=== PATIENT | female | born 1990 | race Caucasian/White ===

== ENCOUNTER 2017-04-02 19:48 | Emergency (ER) | payer BC, OTHER ==
--- NOTE | 2017-04-02 20:01 | PDOC ---
History of Present Illness - General History Source: Patient Exam Limitations: No Limitations - History of Present Illness Initial Comments: 04/02/17 20:17 Patient is a 27 year old female with no significant past medical history presenting to the ED with complaints of Diarrhea and intractable vomiting beginning yesterday. She reports intractable vomiting beginning this morning as well as multiple episodes of diarrhea secondary to nausea. She states that she had a cyst removed from an ovary while in highschool, but is unable to remember which ovary. Patient reports she is actively trying to get but has yet been unsuccessful to her knowledge. Denies chest pain, SOB, lightheadedness. Denies chills, fever. Denies any other symptoms. Allergies: N/A <Wily Higginbotham - Last Filed: 04/02/17 20:17> <Mandeep Farmer - Last Filed: 04/03/17 00:49> - General Chief Complaint: Nausea/Vomiting Stated Complaint: VOMITTING/DIARRHEA Past History <Wily Higginbotham - Last Filed: 04/02/17 20:17> - Immunization History Immunization Up to Date: Yes - Psycho/Social/Smoking Cessation Hx Anxiety: No Suicidal Ideation: No Smoking Status: No Smoking History: Never smoked Have you smoked in the past 12 months: No Number of Cigarettes Smoked Daily: 0 Cigars Per Day: 0 Hx Alcohol Use: Yes (SOCIAL) Drug/Substance Use Hx: No Substance Use Type: None Hx Substance Use Treatment: No <Mandeep Farmer - Last Filed: 04/03/17 00:49> - Past Medical History Allergies/Adverse Reactions: Allergies Allergy/AdvReac Type Severity Reaction Status Date / Time No Known Allergies Allergy Verified 04/02/17 19:59 Home Medications: Ambulatory Orders Pantoprazole Sodium [Protonix -] 40 mg PO DAILY #30 tablet.ec 11/23/15 Ondansetron [Ondansetron Odt] 8 mg PO TID #60 tab.rapdis 04/03/17 Review of Systems - Review of Systems Able to Perform ROS?: Yes Comments:: 04/02/17 20:17 GENERAL/CONSTITUTIONAL: No fever or chills. No weakness. HEAD, EYES, EARS, NOSE AND THROAT: No change in vision. No ear pain or discharge. No sore throat. CARDIOVASCULAR: No chest pain or shortness of breath. RESPIRATORY: No cough, wheezing, or hemoptysis. GASTROINTESTINAL: + Nausea. + Vomiting. + Diarrhea. No constipation. GENITOURINARY: No dysuria, frequency, or change in urination. MUSCULOSKELETAL: No joint or muscle swelling or pain. No neck or back pain. SKIN: No rash NEUROLOGIC: No headache, vertigo, loss of consciousness, or change in strength/ sensation. ENDOCRINE: No increased thirst. No abnormal weight change. HEMATOLOGIC/LYMPHATIC: No anemia, easy bleeding, or history of blood clots. ALLERGIC/IMMUNOLOGIC: No hives or skin allergy. All Other Systems: Reviewed and Negative <Wily Higginbotham - Last Filed: 04/02/17 20:17> *Physical Exam - Vital Signs Last Vital Signs Temp Pulse Resp BP Pulse Ox 98.6 F 127 H 14 109/69 99 04/02/17 19:59 04/02/17 19:59 04/02/17 19:59 04/02/17 19:59 04/02/17 19:59 - Physical Exam Comments: 04/02/17 20:17 GENERAL: Awake, alert, and fully oriented, in no acute distress HEAD: No signs of trauma EYES: PERRLA, EOMI, sclera anicteric, conjunctiva clear ENT: Auricles normal inspection, hearing grossly normal, nares patent, oropharynx clear without exudates. Moist mucosa NECK: Normal ROM, supple, no lymphadenopathy, JVD, or masses LUNGS: Breath sounds equal, clear to auscultation bilaterally. No wheezes, and no crackles HEART: Regular rate and rhythm, normal S1 and S2, no murmurs, rubs or gallops ABDOMEN: + RUQ pain. + RUQ tenderness. Soft normoactive bowel sounds. No guarding, no rebound. No masses EXTREMITIES: Normal range of motion, no edema. No clubbing or cyanosis. No cords, erythema, or tenderness NEUROLOGICAL: Cranial nerves II through XII grossly intact. Normal speech, normal gait SKIN: Warm, Dry, normal turgor, no rashes or lesions noted. <Wily Higginbotham - Last Filed: 04/02/17 20:17> ED Treatment Course - LABORATORY CBC & Chemistry Diagram: 04/02/17 20:20 04/02/17 20:20 <Mandeep Farmer - Last Filed: 04/03/17 00:49> *DC/Admit/Observation/Transfer - Attestations Scribe Attestion: 04/02/17 20:18 Documentation prepared by Wily Higginbotham, acting as medical research scientist for Mandeep Farmer MD. <Wily Higginbotham - Last Filed: 04/02/17 20:17> - Discharge Dispostion Admit: No - Attestations Physician Attestion: 04/02/17 20:00 I, Dr. Mandeep Farmer, attest that this document has been prepared under my direction and personally reviewed by me in its entirety. I further attest, that it accurately reflects all work, treatment, procedures and medical decision -making performed by me. <Mandeep Farmer - Last Filed: 04/03/17 00:49> Diagnosis at time of Disposition: Gastroenteritis, Dehydration - Discharge Dispostion Disposition: HOME Condition at time of disposition: Good - Prescriptions Prescriptions: Ondansetron [Ondansetron Odt] 8 mg PO TID #60 tab.rapdis - Referrals Referrals: Chi Alvarado MD [Primary Care Provider] - - Patient Instructions Printed Discharge Instructions: DI for Nausea -- Adult, DI for Diarrhea and Traveler's Diarrhea -- Adult, DI for Vomiting -- Adult Additional Instructions: Sorry that this hit you so hard. You can use the Zofran ODT 3 or 4 times a day..... Return to us if worse or new symptoms Follow up with your doctor later this week. Jamar- Dr. Kaufman - - Post Discharge Activity Work/School Note: Back to Work
[2017-04-02] MEDS ORDERED: ONDANSETRON 4 MG/2 ML VIAL IVPB ONE (20:10)
[2017-04-02] MEDS ORDERED: SODIUM CHLORIDE 2,000 ML IV STA (20:12)
[2017-04-02 20:16] VITALS: BP 109/69; PULSE 127; TEMP 98.6; BMI 26.4
[2017-04-02] MEDS ORDERED: ONDANSETRON 4 MG/2 ML VIAL ONE (20:16)
[2017-04-02 21:09] LABS: INR 1.24 (0.82-1.09); PROTHROMBIN TIME (PATIENT) 13.7 SEC (9.98-11.88)
[2017-04-02 21:10] LABS: MCH 28.4 pg (25.7-33.7); MCHC 33.7 g/dl (32.0-36.0); MEAN CELL VOLUME 84.3 fl (80-96); MEAN PLT VOLUME 9.2 fl (7.5-11.1); PLATELET COUNT 199 K/MM3 (134-434); RDW 13.9 % (11.6-15.6); WHITE BLOOD COUNT 9.1 K/mm3 (4.0-10.0)
[2017-04-02 21:12] LABS: ALBUMIN 4.4 g/dl (3.4-5.0); ANION GAP 10 (8-16); BILIRUBIN,TOTAL 0.7 mg/dL (0.2-1.0); CALCIUM 9.4 mg/dL (8.5-10.1); CO2 23 mmol/L (21-32); CREATININE 0.8 mg/dL (0.55-1.02); GLUCOSE,RANDOM 104 mg/dL (74-106); SGOT/AST 16 U/L (15-37); SGPT/ALT 21 U/L (12-78); TOT PROT 7.7 g/dl (6.4-8.2)
[2017-04-02 21:13] LABS: ALK PHOS 59 U/L (45-117)
[2017-04-02 21:56] LABS: URINE APPEARANCE CLOUDY; URINE BILIRUBIN NEGATIVE (NEGATIVE); URINE BLOOD 2+ (NEGATIVE); URINE COLOR YELLOW; URINE GLUCOSE (UA) NEGATIVE (NEGATIVE); URINE KETONE 2+ (NEGATIVE); URINE LEUK ESTERASE NEGATIVE (NEGATIVE); URINE NITRITE NEGATIVE (NEGATIVE); URINE UROBILINOGEN NEGATIVE mg/dL (0.2-1.0)
[2017-04-02 21:57] LABS: PLATELET ESTIMATE ADEQUATE (NORMAL); TOTAL CELLS COUNTED 100
[2017-04-02 22:09] LABS: URINE PROTEIN 1+ (NEGATIVE)
[2017-04-02 22:10] LABS: URINE BACTERIA RARE /hpf (NONE SEEN); URINE MUCUS MANY; URINE RBC 1 /hpf (0-3); URINE WBC 2 /hpf (3-5)
[2017-04-03] MEDS ORDERED: ONDANSETRON *ODT* 4 MG TABLET SL ONE (00:23)
[2017-04-03] MEDS ORDERED: ONDANSETRON *ODT* 4 MG TABLET ONE (00:36)
== END 2017-04-03 01:16 | disposition home or self-care (01) ==
LOC: JER 19:48
PROC: 3E0337Z Introduction of Electrolytic and Water Balance Substance into Peripheral Vein, Percutaneous Approach (ICD-10-PCS; principal; 2017-04-02)
PROC: 3E033GC Introduction of Other Therapeutic Substance into Peripheral Vein, Percutaneous Approach (ICD-10-PCS; 2017-04-02)
DX: K52.9 Noninfective gastroenteritis and colitis, unspecified (principal); E86.0 Dehydration
CPT/HCPCS: 36415; 76705-TC; 80053; 81003; 81015; 83690; 84703; 85025; 85610; 99283-25